=== PATIENT | male | born 1980 | race Caucasian/White ===

== ENCOUNTER 2021-09-06 16:28 | Emergency (ER) | payer BC ==
[~2021-09-06] VITALS: Ht 180.3 cm; Wt 108.8 kg
--- NOTE | 2021-09-06 17:13 | ED Lower Extremity ---
General Chief Complaint: Laceration Stated Complaint: L LEG LAC Nursing Triage Note: PT TO RM 7 BY WC WITH COMPLAINT OF LACERATION TO LEFT CALF. STATES WAS CHOPPING DOWN TREE AND CUT LEG WITH AX. UP TO DATE TETANUS. History of Present Illness Date Seen by Provider: Sep 06, 2021 Time Seen by Provider: 16:40 Initial Comments 40-year-old male presents for a laceration to his left calf which incurred while he was chopping down a tree with an ax. He is current on tetanus vaccine. He denies any other injuries. Onset: just prior to arrival Pain/Injury Location: left leg Method of Injury: incised Allergies and Home Medications Allergies Coded Allergies: No Known Drug Allergies (Unverified , 09/06/21) Patient Home Medication List Home Medication List Reviewed: Yes Review of Systems Constitutional: no symptoms reported, see HPI Skin: see HPI, other (Laceration left leg) All Other Systems Reviewed Negative Unless Noted: Yes Past [id number]-[id number]-Etqwac Hx Patient Social History Tobacco Use?: No Use of E-Cig and/or Vaping dev: No Substance use?: No Alcohol Use?: No Family Medical History Reviewed Nursing Family Hx Physical Exam Vital Signs Vital Signs - First Documented 09/06/21 16:33 Temp 36.6 Pulse 75 Resp 16 B/P (MAP) 151/77 (101) Pulse Ox 98 O2 Delivery Room Air Capillary Refill : Less Than 3 Seconds Height, Weight, BMI Height: '" Weight: lbs. oz. kg; 33.00 BMI Method: General Appearance: WD/WN, no apparent distress Cardiovascular: normal peripheral pulses, regular rate, rhythm Respiratory: chest non-tender, lungs clear Legs: left leg normal range of motion, left leg abrasions (4.5 cm lac), left leg soft tissue tenderness Neurologic/Psychiatric: no motor/sensory deficits, alert, normal mood/affect, oriented x 3 Skin: normal color, warm/dry Procedures/Interventions Wound Location: Lower Extremities (left leg, calf) Wound Length (cm): 4.5 Wound's Depth, Shape: superficial Wound Explored: clean Irrigated w/ Saline (ccs): 500 Betadine Prep?: Yes Anesthesia: 1% Lidocaine Volume Anesthetic (ccs): 8 Suture: Ethlion Suture Size: 4-0 Number of Sutures: 5 Sterile Dressing Applied?: Yes Progress Patient tolerated procedure well, wound approximated. Sterile bulky dressing applied. Progress/Results/Core Measures Results/Orders Vital Signs/I&O 09/06/21 09/06/21 16:33 17:16 Temp 36.6 36.6 Pulse 75 75 Resp 16 16 B/P (MAP) 151/77 (101) 151/77 Pulse Ox 98 98 O2 Delivery Room Air Room Air Blood Pressure Mean: 101 Departure Impression Primary Impression: Laceration of left leg Qualified Codes: S81.812A - Laceration without foreign body, left lower leg, initial encounter Disposition: HOME, SELF-CARE Condition: Improved Departure-Patient Inst. Decision time for Depature: 17:05 Referrals: NO,LOCAL PHYSICIAN (PCP/Family) Primary Care Physician Patient Instructions: Laceration Repair With Stitches (DC) Add. Discharge Instructions: Keep wound clean and dry, do not remove the current dressing for 24 hours. You may shower daily starting tomorrow. After showering clean wound with alcohol. Keep wound covered when you are away from home, you may leave it open to air while you are at home. Watch for signs of infection: Redness, swelling, fever, discolored drainage. Return to the emergency department or your primary care provider in 7 to 10 days to have your sutures removed. You may apply an ice pack and elevate your leg if there is swelling. Return to the emergency department for new, urgent healthcare needs. All discharge instructions reviewed with patient and/or family. Voiced understanding. HUMBERTO BUSH Sep 06, 2021 17:13
[2021-09-06 17:16] VITALS: BP 151/77
== END 2021-09-06 17:16 | disposition home or self-care (01) ==
LOC: ER 16:31
DX: S81.812A Laceration without foreign body, left lower leg, initial encounter (principal); W27.8XXA Contact with other nonpowered hand tool, initial encounter; Y93.H2 Activity, gardening and landscaping
CPT/HCPCS: 12002

== ENCOUNTER 2021-09-18 09:50 | Emergency (ER) | payer BC ==
[~2021-09-18] VITALS: Ht 180 cm; Wt 112.0 kg
[2021-09-18 10:07] VITALS: BP 125/82
== END 2021-09-18 10:08 | disposition home or self-care (01) ==
LOC: EDUNIT# 09:50 → ER 09:51
DX: Z48.02 Encounter for removal of sutures (principal)